=== PATIENT | male | born 1995 ===

== ENCOUNTER 2018-12-08 06:40 | Day surgery (SDC) | payer BC ==
[~2018-12-08 06:40] MED LIST: Midazolam 1 MG/ML 2 ML SDV ONE; fentaNYL 100 MCG/2 ML SDV ONE
[2018-12-08] MEDS ORDERED: Midazolam 1 MG/ML 2 ML SDV IV ONE ×7 (06:41→07:34)
[2018-12-08] MEDS ORDERED: fentaNYL 100 MCG/2 ML SDV IV ONE ×5 (06:41→07:36)
[2018-12-08] MEDS ORDERED: Sodium Chloride 0.9% 10 ML Syringe FLUSH PRN (08:00)
[2018-12-08] MEDS ORDERED: Dextrose 5%-0.45% NaCl 1,000 ML IV SCH (08:00)
--- NOTE | 2018-12-08 13:41 | OR ---
DATE: 12/08/2018 PROCEDURE: Total colonoscopy and terminal ileoscopy. INSTRUMENT USED: [id number]-H190DL Olympus video colonoscope. PREMEDICATIONS: Fentanyl 125 mcg intravenous, Versed 4 mg intravenous, nasal O2 cannula. The procedure was done under pulse oximetry, BP recording, and blueprint tracer. INDICATION: The patient with recent alteration in bowel habits as well as rectal draining, unexplained and not responsive to medical measures. Colonoscopic examination is done for detection of any polypoid lesions and removal, endoscopic hemostasis therapy if needed. DESCRIPTION OF PROCEDURE: Initial rectal exam was unremarkable. Rigid anoscopy was normal. The colonoscope was passed with ease up to and beyond the ileocecal junction to visualize normal-appearing terminal ileum, NBI views were obtained. Photographs were taken of the terminal ileum as well as normal-appearing cecum. No bleeding was noted from any of the visualized areas at the commencement of the examination. The bowel preparation was found to be adequate, [place] scale 2 in all the regions. No stricture, no vascular ectasia, no large isolated ulcerations seen. No evidence of diffuse inflammatory bowel disease in the form of friability, contact bleeding, or ulcerations. No polyp or tumor mass identified. Probing the proximal sides of folds and flexures using adequate distention and clearing of the stool material, withdrawal of the scope was made, cecum to rectum time over 6 minutes. No bleeding was noted from any of the visualized areas at the completion of examination. IMPRESSION: Normal study. The patient tolerated the procedure well. [facility] /[id number]
== END 2018-12-08 09:45 | disposition home or self-care (01) ==
LOC: DL.ENDO 06:40
PROVIDERS: ATTEND Internal Medicine Gastroenterology
DX: R19.4 Change in bowel habit (principal); K62.89 Other specified diseases of anus and rectum; E03.9 Hypothyroidism, unspecified
CPT/HCPCS: G0121; J2250; J3010; J7042